=== PATIENT | male | born 1945 | race Caucasian/White ===

== ENCOUNTER 2020-01-22 05:19 | Inpatient (IN) | payer MEDICARE ==
[~2020-01-22] VITALS: Ht 175.3 cm; Wt 84.6 kg
[2020-01-22 05:19] VITALS: BP_SYST 158
--- NOTE | 2020-01-22 05:32 | NUR ---
Patient BIB by EMS from home. C/O Hiccups x today. Patient states " had Hiccups for 4 hours, started concern. " A/O,X4, no SOB, place patient hospital monitor.
--- NOTE | 2020-01-22 05:32 | NUR ---
Patient to ER bed 4 to gown for evaluation. Side rails up.
--- NOTE | 2020-01-22 06:24 | NUR ---
ER Dr. De La Cruz at bedside examining patient.
[2020-01-22] MEDS ORDERED: NACL 0.9% 1,000 ML IV ONE (06:45)
[2020-01-22] MEDS ORDERED: ONDANSETRON 4 MG ODT TAB PO ONE (06:45)
[2020-01-22] MEDS ORDERED: FAMOTIDINE 20 MG TABLET PO ONE (06:45)
--- NOTE | 2020-01-22 06:55 | NUR ---
# 20 gauge angiocath placed to left hand. Use of asceptic technique. Opsite placed over site. Blood return noted. Blood for lab drawn from site. Flushed with 10 cc of normal saline. No evidence of infiltration noted. Patient tolerated well.
[2020-01-22] MEDS ORDERED: THORAZINE (chlorproMAZINE) 25 MG TAB PO ONE (07:00)
[2020-01-22 07:14] LABS: BASOPHILS % (AUTO) 0.3 % (0.0-2.0); EOSINOPHILS # (AUTO) 0.3 K/uL (0.0-0.4); EOSINOPHILS % (AUTO) 2.6 % (0.0-4.0); HEMATOCRIT 38.2 % (36-54); HEMOGLOBIN 14.4 g/dL (14.0-18.0); LYMPHOCYTES # (AUTO) 0.7 K/uL (1.0-5.5); MEAN CORPUSCULAR HEMOGLOBIN 33 pg (27-31); MEAN CORPUSCULAR HGB CONC 38 % (32-36); MEAN CORPUSCULAR VOLUME 87 fL (79.0-98.0); MONOCYTES # (AUTO) 1.2 K/uL (0.0-1.0); MONOCYTES % (AUTO) 9.9 % (1.7-9.3); NEUTROPHILS # (AUTO) 9.5 K/uL (1.8-7.7); NEUTROPHILS % (AUTO) 81.2 % (40.0-70.0); PLATELET COUNT (AUTO) 360 K/uL (130-430); RED BLOOD CELL COUNT(AUTO) 4.42 MIL/uL (4.2-6.2); RED CELL DISTRIBUTION WIDTH 12.3 % (9.0-15.0); WHITE BLOOD COUNT (AUTO) 11.7 K/uL (4.8-10.8)
[2020-01-22 07:20] LABS: ANION GAP 9 (5-15); CALCIUM 8.5 mg/dL (8.4-11.0); CREATININE 0.92 mg/dL (0.55-1.30); GLUCOSE 118 mg/dL (70-99); POTASSIUM 3.9 mmol/L (3.5-5.1); UREA NITROGEN, BLOOD 12 mg/dL (8-21)
[2020-01-22] MEDS ORDERED: chlorproMAZINE HCL 50 MG/ 2 ML AMP ONE (07:30)
[2020-01-22 07:50] LABS: SODIUM SERUM 100 mmol/L (136-145)
[2020-01-22 07:51] LABS: CHLORIDE 70 mmol/L (98-107)
[2020-01-22] MEDS ORDERED: SODIUM CHLORIDE 3% *HI-ALERT* 500 ML IV ONE ×2 (08:00→22:15)
[2020-01-22 09:20] LABS: ANION GAP 7 (5-15); CREATININE 0.93 mg/dL (0.55-1.30); GLUCOSE 107 mg/dL (70-99); POTASSIUM 4.1 mmol/L (3.5-5.1); UREA NITROGEN, BLOOD 12 mg/dL (8-21)
[2020-01-22 09:27] LABS: CHLORIDE 72 mmol/L (98-107)
[2020-01-22 09:28] LABS: SODIUM SERUM 101 mmol/L (136-145)
--- NOTE | 2020-01-22 10:15 | NUR ---
PT GIVEN URINAL, AND PERICARE WITH LINEN CHANGE
[2020-01-22] MEDS ORDERED: ACETAMINOPHEN 325 MG TABLET PO PRN (11:00)
[2020-01-22] MEDS ORDERED: ONDANSETRON HCL 4 MG/2 ML VIAL IVP PRN (11:00)
--- NOTE | 2020-01-22 12:05 | NUR ---
Dr Capellan at bedside discussing admission with patient.
[2020-01-22] MEDS ORDERED: LISI-600 PO (12:17)
[2020-01-22] MEDS ORDERED: ALBMDI INH (12:17)
[2020-01-22] MEDS ORDERED: POTA10TA15 PO (12:17)
[2020-01-22] MEDS ORDERED: SILD20TA PO (12:17)
[2020-01-22] MEDS ORDERED: NOR10 PO (12:17)
[2020-01-22] MEDS ORDERED: PRED20TA PO (12:17)
--- NOTE | 2020-01-22 12:18 | NUR ---
Medication reconciliation completed with information provided by patient. Any prior medication reconciliation on file was reviewed and corrected.
--- NOTE | 2020-01-22 12:49 | NUR ---
PT TO RADIOLOGY.
--- NOTE | 2020-01-22 13:10 | NUR ---
PATIENT GIVEN HOSPITAL LUNCH TRAY
--- NOTE | 2020-01-22 14:25 | NUR ---
bed request to Tele/MS, unable to speak with [facility], notified house sup requesting bed assignment
[2020-01-22] MEDS: PANTOPRAZOLE SODIUM 40 MG TAB PO SCH (16:05)
--- NOTE | 2020-01-22 16:20 | NUR ---
PT GIVEN URINAL, AND PERICARE WITH LINEN CHANGE
[2020-01-22 17:10] LABS: BILIRUBIN,URINE NEGATIVE (NEGATIVE); BLOOD, URINE NEGATIVE (NEGATIVE); CLARITY/URINE CLEAR (CLEAR); COLOR,URINE YELLOW (YELLOW); GLUCOSE,URINE NEGATIVE (NEGATIVE); KETONES,URINE TRACE (NEGATIVE); LEUKOCYTE ESTERASE ,URINE NEGATIVE (NEGATIVE); NITRITE, URINE NEGATIVE (NEGATIVE); PROTEIN URINE NEGATIVE (NEGATIVE); UROBILINOGEN,URINE 0.2 (0.2-1.0)
--- NOTE | 2020-01-22 17:25 | NUR ---
PATIENT GIVEN HOSPITAL DINNER TRAY
[2020-01-22 18:00] LABS: ANION GAP 9 (5-15); CALCIUM 8.2 mg/dL (8.4-11.0); CREATININE 0.99 mg/dL (0.55-1.30); GLUCOSE 96 mg/dL (70-99); POTASSIUM 4.2 mmol/L (3.5-5.1); UREA NITROGEN, BLOOD 12 mg/dL (8-21)
[2020-01-22 18:08] LABS: SODIUM SERUM 103 mmol/L (136-145)
[2020-01-22 18:09] LABS: CHLORIDE 76 mmol/L (98-107)
--- NOTE | 2020-01-22 19:19 | NUR ---
REPORT TO OCTOBER RN
--- NOTE | 2020-01-22 19:53 | NUR ---
Patient resting quietly. No acute distress noted. Vital signs within normal range.
--- NOTE | 2020-01-22 20:03 | NUR ---
Patient will be admitted to care of Dr. Capellan. Admitted to Tele unit. Will go to room 112B. Belongings list completed. Complete and up to date summary report printed. SBAR report to be given at bedside with opportunity for questions.
[2020-01-22 20:18] VITALS: BP_SYST 131
--- NOTE | 2020-01-22 20:18 | NUR ---
ADMISSION NOTE Received patient from ER via gurney. Patient admitted with diagnosis of Severe Hyponatremia. Patient is awake, alert, oriented X 4. Patient oriented to hospital room, call light, toileting, pain management and safety-teach back done. Patient informed that PRANAV Agarwal will be primary nurse and that their room number is 112B. Personal belongings checked and Belongings List documented. Call light within reach.
--- NOTE | 2020-01-22 22:00 | NUR ---
INITIAL NOTE AT INITIAL ASSESSMENT, PATIENT IS RESTING IN BED, STABLE, NO SIGNS OF RESPIRATORY DISTRESS. PLAN OF CARE FOR THE EVENING IS COMMUNICATED WITH THE PATIENT. PATIENT DEMONSTRATES CORRECT USAGE OF CALL LIGHT USAGE AT THIS TIME. FALL, SAFETY, RESPIRATORY, AND ASPIRATION PRECAUTIONS WILL BE TAKEN THROUGHOUT THE SHIFT. BED IS LOCKED, ALARMED, AND AT THE LOWEST LEVEL.
[2020-01-22] MEDS ORDERED: hydrALAZINE HCL 10 MG TABLET PO PRN (23:00)
[2020-01-23] MEDS ORDERED: SODIUM CHLORIDE 3% *HI-ALERT* 500 ML IV ONE ×2 (01:11→01:12)
--- NOTE | 2020-01-23 06:00 | NUR ---
CLOSING NOTE PATIENT SLEPT WELL THROUGHOUT THE NIGHT. AT THIS TIME, HE IS STABLE, NO SIGNS OF RESPIRATORY DISTRESS. BED IS LOCKED, ALARMED, AND AT THE LOWEST LEVEL. FALL, SAFETY, RESPIRATORY, AND ASPIRATION PRECAUTIONS HAVE BEEN TAKEN THROUGHOUT THE SHIFT. WILL CONTINUE TO MONITOR UNTIL SBAR REPORT IS GIVEN AT BEDSIDE TO AM NURSE.
[2020-01-23 07:16] LABS: BASOPHILS # (AUTO) 0.1 K/uL (0.0-0.2); BASOPHILS % (AUTO) 0.7 % (0.0-2.0); EOSINOPHILS # (AUTO) 0.5 K/uL (0.0-0.4); EOSINOPHILS % (AUTO) 5.8 % (0.0-4.0); HEMATOCRIT 37.9 % (36-54); HEMOGLOBIN 13.8 g/dL (14.0-18.0); LYMPHOCYTES # (AUTO) 0.9 K/uL (1.0-5.5); LYMPHOCYTES % (AUTO) 10.4 % (20.5-51.5); MEAN CORPUSCULAR HEMOGLOBIN 32 pg (27-31); MEAN CORPUSCULAR HGB CONC 36 % (32-36); MEAN CORPUSCULAR VOLUME 89 fL (79.0-98.0); MONOCYTES # (AUTO) 1.2 K/uL (0.0-1.0); MONOCYTES % (AUTO) 13.1 % (1.7-9.3); NEUTROPHILS # (AUTO) 6.3 K/uL (1.8-7.7); PLATELET COUNT (AUTO) 347 K/uL (130-430); RED BLOOD CELL COUNT(AUTO) 4.27 MIL/uL (4.2-6.2); RED CELL DISTRIBUTION WIDTH 12.4 % (9.0-15.0)
[2020-01-23 08:00] VITALS: BP_SYST 131
--- NOTE | 2020-01-23 08:00 | NUR ---
A/Ox4,afebrile,vss,resting well in bed,no c/o pain or discomfort,hypertonic IVF infusing,needs attended,call light & personal items within pt reach,safety maintained.continue to monitor pt.
--- NOTE | 2020-01-23 08:03 | NUR ---
Nutrition Update Jono scale 18 noted. Pt admitted for Severe Hyponatremia Diet: 2 gm Na BMI: 27.5 kg/m2 RD to follow per nutrition care standards.
[2020-01-23 08:06] LABS: ALANINE AMINOTRANSFERASE 56 U/L (12-78); ANION GAP 4 (5-15); ASPARTATE AMINOTRANSFERASE 32 U/L (10-37); CALCIUM 7.9 mg/dL (8.4-11.0); CHLORIDE 87 mmol/L (98-107); CREATININE 1.02 mg/dL (0.55-1.30); GLUCOSE 95 mg/dL (70-99); POTASSIUM 3.7 mmol/L (3.5-5.1); THYROID STIMULATING HORMONE 1.93 uIu/mL (0.36-3.74); TOTAL BILIRUBIN 0.6 mg/dL (0.0-1.0); UREA NITROGEN, BLOOD 12 mg/dL (8-21)
[2020-01-23 08:32] LABS: SODIUM SERUM 117 mmol/L (136-145)
--- NOTE | 2020-01-23 09:00 | NUR ---
pt eating well for lunch,no n/v.hourly rounds made,safety maintained.
[2020-01-23] MEDS: PANTOPRAZOLE SODIUM 40 MG TAB PO SCH (09:04)
--- NOTE | 2020-01-23 11:00 | NUR ---
called and notified of sodium 117 per am lab,hold 3 % sodium IVF infusion then repeat BMP @1600 orders received and carried out,pt ambulated by self in the room,no acute distress noted.
--- NOTE | 2020-01-23 12:00 | NUR ---
VSS,NO C/O PAIN OR DISCOMFORT,HOURLY ROUNDS MADE,SAFETY MAINTAINED.
[2020-01-23 12:15] VITALS: BP_SYST 140
--- NOTE | 2020-01-23 14:00 | NUR ---
CAME AND SEEN PT FOR RENAL CONSULT.CONTINUE TO MONITOR PT.
--- NOTE | 2020-01-23 16:00 | NUR ---
AFEBRILE,VSS,REPEAT BMP DRAWN BY LAB,CONTINUE HOLD HYPERTONIC IV UNTIL FURTHER ORDER.
[2020-01-23 16:19] VITALS: BP_SYST 138
[2020-01-23 16:42] LABS: ANION GAP 9 (5-15); CALCIUM 8.4 mg/dL (8.4-11.0); CHLORIDE 91 mmol/L (98-107); CREATININE 1.06 mg/dL (0.55-1.30); GLUCOSE 102 mg/dL (70-99); POTASSIUM 3.6 mmol/L (3.5-5.1); SODIUM SERUM 120 mmol/L (136-145); UREA NITROGEN, BLOOD 12 mg/dL (8-21)
--- NOTE | 2020-01-23 18:05 | NUR ---
REPEAT NA UP TO 120, CALLED AND NOTIFIED,NO FURTHER ORDERS OBTAINED.PT EATING WELL FOR DINNER.NO EVENT THROUGHOUT AM SHIFT.
--- NOTE | 2020-01-23 19:40 | NUR ---
ROUNDS PATIENT RESTING COMFORTABLY IN BED, NOT IN DISTRESS, VITALS STABLE. ASSESSMENT DONE AND DOCUMENTED. SEE FLOWSHEET. NEEDS ATTENDED TO. SAFETY AND FALL MEASURES IN PLACED. BED IN LOW AND LOCKED POSITION. CALL LIGHT PLACED WITHIN REACH.
[2020-01-23 20:00] VITALS: BP_SYST 122
--- NOTE | 2020-01-23 22:15 | NUR ---
PATIENT RESTING: Patient resting quietly. No acute distress noted. Vital signs within normal range.
[2020-01-24] VITALS: BP_SYST 129
--- NOTE | 2020-01-24 00:15 | NUR ---
ROUNDS PATIENT ASLEEP, RESPIRATIONS EVEN AND UNLABORED, VITALS STABLE. WILL CONTINUE TO MONITOR.
--- NOTE | 2020-01-24 04:12 | NUR ---
PATIENT RESTING: Patient resting quietly. No acute distress noted. Vital signs within normal range.
--- NOTE | 2020-01-24 06:55 | NUR ---
CLOSING NOTES PATIENT AWAKE, VITALS STABLE, NO COMPLAINTS AT THIS TIME. ALL NEEDS ATTENDED TO. SAFETY MEASURES MAINTAINED. CALL LIGHT PLACED WITHIN REACH.
[2020-01-24 08:00] VITALS: BP_SYST 135
--- NOTE | 2020-01-24 08:00 | NUR ---
A/Ox4,vss,resting well in bed,no c/o pain or discomfort,saline lock in left hand patent and intact needs attended,call light & personal items within pt reach,safety maintained.continue to monitor pt.
[2020-01-24] MEDS: PANTOPRAZOLE SODIUM 40 MG TAB PO SCH (08:33)
[2020-01-24 08:54] LABS: BASOPHILS # (AUTO) 0.1 K/uL (0.0-0.2); BASOPHILS % (AUTO) 0.8 % (0.0-2.0); EOSINOPHILS # (AUTO) 0.5 K/uL (0.0-0.4); HEMATOCRIT 38.4 % (36-54); HEMOGLOBIN 13.6 g/dL (14.0-18.0); LYMPHOCYTES # (AUTO) 0.8 K/uL (1.0-5.5); LYMPHOCYTES % (AUTO) 10.7 % (20.5-51.5); MEAN CORPUSCULAR HEMOGLOBIN 32 pg (27-31); MEAN CORPUSCULAR HGB CONC 35 % (32-36); MEAN CORPUSCULAR VOLUME 91 fL (79.0-98.0); MONOCYTES # (AUTO) 0.6 K/uL (0.0-1.0); MONOCYTES % (AUTO) 7.8 % (1.7-9.3); NEUTROPHILS # (AUTO) 5.7 K/uL (1.8-7.7); NEUTROPHILS % (AUTO) 73.7 % (40.0-70.0); PLATELET COUNT (AUTO) 347 K/uL (130-430); RED BLOOD CELL COUNT(AUTO) 4.23 MIL/uL (4.2-6.2); RED CELL DISTRIBUTION WIDTH 12.4 % (9.0-15.0); WHITE BLOOD COUNT (AUTO) 7.8 K/uL (4.8-10.8)
[2020-01-24 09:12] LABS: ALANINE AMINOTRANSFERASE 64 U/L (12-78); ANION GAP 8 (5-15); ASPARTATE AMINOTRANSFERASE 30 U/L (10-37); CALCIUM 8.4 mg/dL (8.4-11.0); CHLORIDE 94 mmol/L (98-107); CREATININE 1.07 mg/dL (0.55-1.30); GLUCOSE 176 mg/dL (70-99); POTASSIUM 3.4 mmol/L (3.5-5.1); SODIUM SERUM 124 mmol/L (136-145); TOTAL BILIRUBIN 0.6 mg/dL (0.0-1.0); UREA NITROGEN, BLOOD 12 mg/dL (8-21)
--- NOTE | 2020-01-24 10:00 | NUR ---
called and notified of abnormal am lab sodium 124,K level 3.4,order received and carried out, give KCL 40 meq po once per dr order.
--- NOTE | 2020-01-24 10:08 | NUR ---
PAGED PAGED LOREE LEON AT [phone] SPOKE WITH JOHN
[2020-01-24] MEDS ORDERED: POTASSIUM CHLORIDE 20 MEQ TAB.PRT.SR PO ONE (11:15)
--- NOTE | 2020-01-24 14:00 | NUR ---
assisted pt personal hygiene in bathroom,pt has drink 1 pitchter full of water and asking for more water yet no MD order for fluid restriction.continue to monitor pt.
--- NOTE | 2020-01-24 15:22 | NUR ---
Case mgt: Faxed prog notes to [facility] case mgt-Dr. Capellan note 01/23/20, Dr. Cronin 01/24/20 note-[facility] fax#[phone]-- RN
--- NOTE | 2020-01-24 18:14 | NUR ---
condition stable.hourly rounds made,safety maintained,no significant event throughout am shift will endorse report to oncoming shift staff.
--- NOTE | 2020-01-24 19:40 | NUR ---
ROUNDS PATIENT RESTING COMFORTABLY IN BED, VITALS STABLE, DENIES ANY PAIN AND DISCOMFORT AT THIS TIME. ASSESSMENT DONE AND DOCUMENTED. SEE FLOWSHEET. NEEDS ATTENDED TO. SAFETY AND FALL MEASURES IN PLACED. CALL LIGHT PLACED WITHIN REACH.
[2020-01-24 20:00] VITALS: BP_SYST 126
[2020-01-24] MEDS: OXYMETAZOLINE HCL 0.05% NASAL SPRAY NS SCH (21:00)
[2020-01-24] MEDS ORDERED: KCL 20 mEq in NS 1000 mL 1,000 ML IV ONE (21:01)
[2020-01-24] MEDS: KCL 20 mEq in NS 1000 mL 1,000 ML IV SCH (22:11)
--- NOTE | 2020-01-24 22:18 | NUR ---
PATIENT RESTING: Patient resting quietly. No acute distress noted. Vital signs within normal range.
[2020-01-25] VITALS: BP_SYST 115
--- NOTE | 2020-01-25 00:16 | NUR ---
ROUNDS PATIENT ASLEEP, VITAL STABLE, NO SIGNS OF ANY PAIN AND DISCOMFORT NOTED. WILL CONTINUE TO MONITOR.
--- NOTE | 2020-01-25 02:20 | NUR ---
ROUNDS PATIENT SLEEPING, RESPIRATIONS EVEN AND UNLABORED, NO SIGNS OF ANY PAIN AND DISCOMFORT NOTED. WILL CONTINUE TO MONITOR.
--- NOTE | 2020-01-25 04:16 | NUR ---
PATIENT RESTING: Patient resting quietly. No acute distress noted. Vital signs within normal range.
--- NOTE | 2020-01-25 06:50 | NUR ---
CLOSING NOTES PATIENT AWAKE, NO COMPLAINTS AT THIS TIME, VITALS STABLE. ALL NEEDS ATTENDED TO. SAFETY MEASURES MAINTAINED. CALL LIGHT PLACED WITHIN REACH.
[2020-01-25 08:00] VITALS: BP_SYST 140
--- NOTE | 2020-01-25 08:00 | NUR ---
A/Ox4,vss,IVF continue infusing,IV site in left hand patent and clear.no c/o pain or discomfort needs attended,call light & personal items within pt reach,safety maintained.continue to monitor pt.
[2020-01-25] MEDS: PANTOPRAZOLE SODIUM 40 MG TAB PO SCH (09:47)
[2020-01-25 09:58] LABS: ANION GAP 6 (5-15); CALCIUM 8.7 mg/dL (8.4-11.0); CHLORIDE 94 mmol/L (98-107); CREATININE 1.05 mg/dL (0.55-1.30); GLUCOSE 155 mg/dL (70-99); SODIUM SERUM 125 mmol/L (136-145); UREA NITROGEN, BLOOD 9 mg/dL (8-21)
--- NOTE | 2020-01-25 10:00 | NUR ---
came and seen pt.order received and carried out.
--- NOTE | 2020-01-25 12:00 | NUR ---
afebrile,vss,pt ambulatory in the room,no distress noted.hourly rounds made,safety maintained.
[2020-01-25 12:36] VITALS: BP_SYST 150
[2020-01-25] MEDS ORDERED: INSULIN LISPRO SLIDING SCALE 100 UNITS/ML VIAL (humaLOG) SUBCUT PRN (14:00)
[2020-01-25] MEDS ORDERED: BISACODYL 10 MG/SUPPOSITORY RC PRN (14:00)
--- NOTE | 2020-01-25 14:00 | NUR ---
pt resting quietly in bed.no c/o pain or discomfort.continue to monitor pt.
[2020-01-25] MEDS ORDERED: DOCUSATE SODIUM 250 MG CAPSULE PO ONE (14:15)
[2020-01-25 16:25] VITALS: BP_SYST 158
--- NOTE | 2020-01-25 19:35 | NUR ---
ROUNDS PATIENT RESTING COMFORTABLY IN BED, VITALS STABLE, DENIES ANY PAIN AND DISCOMFORT ATT HIS TIME. ASSESSMENT DONE AND DOCUEMNTED. SEE FLOWSHEET. NEEDS ATTENDED TO. SAFETY AND FALL MEASURES IN PLACED. BED IN LOW AND LOCKED POSITION. CALL LIGHT PLACED WITHIN REACH.
[2020-01-25 20:00] VITALS: BP_SYST 147
[2020-01-25] MEDS: OXYMETAZOLINE HCL 0.05% NASAL SPRAY NS SCH (20:35)
[2020-01-25] MEDS: DOCUSATE SODIUM 250 MG CAPSULE PO SCH (20:35)
[2020-01-25] MEDS: KCL 20 mEq in NS 1000 mL 1,000 ML IV SCH (20:35)
--- NOTE | 2020-01-25 21:14 | NUR ---
ACCU CHECK ACCU CHECK DONE, BLOOD SUGAR 121 WITH NO INSULIN COVERAGE PER SLIDING SCALE. WILL CONTINUE TO MONITOR.
[2020-01-26] VITALS: BP_SYST 152
--- NOTE | 2020-01-26 00:12 | NUR ---
PATIENT RESTING: Patient resting quietly. No acute distress noted. Vital signs within normal range.
--- NOTE | 2020-01-26 02:15 | NUR ---
ROUNDS PATIENT ASLEEP, RESPIRATIONS EVEN AND UNLABORED, WILL CONTINUE TO MONITOR.
--- NOTE | 2020-01-26 04:12 | NUR ---
PATIENT RESTING: Patient resting quietly. No acute distress noted. Vital signs within normal range.
--- NOTE | 2020-01-26 06:33 | NUR ---
CLOSING NOTES PATIENT AWAKE, VITALS STABLE, NO COMPLAINTS AT THIS TIME. ALL NEEDS ATTENDED TO. SAFETY MEASURES MAINTAINED. CALL LIGHT PLACED WITHIN REACH.
--- NOTE | 2020-01-26 07:50 | NUR ---
report received from [facility] shift nurse. Pt is currently AAOx4 and having breakfast in bed. IV is on the left hand 20g, patent and infusing well. Call light is within reach. will continue to monitor.
[2020-01-26 08:23] VITALS: BP_SYST 157
[2020-01-26 08:34] LABS: ANION GAP 7 (5-15); CALCIUM 8.5 mg/dL (8.4-11.0); CHLORIDE 99 mmol/L (98-107); GLUCOSE 98 mg/dL (70-99); POTASSIUM 4.3 mmol/L (3.5-5.1); SODIUM SERUM 130 mmol/L (136-145); UREA NITROGEN, BLOOD 9 mg/dL (8-21)
--- NOTE | 2020-01-26 10:20 | NUR ---
pt is currently resting in bed. Call light is within
[2020-01-26] MEDS: DOCUSATE SODIUM 250 MG CAPSULE PO SCH (11:03)
[2020-01-26] MEDS: PANTOPRAZOLE SODIUM 40 MG TAB PO SCH (11:03)
--- NOTE | 2020-01-26 11:15 | NUR ---
20g inserted the RAC. Patient tolerated well.
[2020-01-26 12:39] VITALS: BP_SYST 153
--- NOTE | 2020-01-26 14:00 | NUR ---
Dr. Capellan is at the bedside speaking w/ the pt.
[2020-01-26 14:36] VITALS: BP_SYST 153
--- NOTE | 2020-01-26 15:02 | NUR ---
D/C Patient Patient given medication reconciliation form and D/C instructions. Exit Care provided. Patient verbalized understanding. MD discussed with patient the results and treatment provided. Ambulatory with steady gait for discharge to home. Patient in stable condition, ID band removed. IV catheter removed, intact and dressing applied, no active bleeding. Rx of given. Patient educated on pain management. All belongings sent with patient.
--- NOTE | 2020-01-28 12:00 | NUR ---
DISCHARGE FOLLOW UP CALL: MICROBIOLOGY TEACHER phoned pt @ [phone] (non-working). MICROBIOLOGY TEACHER phoned spouse and was given pt's phone number ([phone]). MICROBIOLOGY TEACHER spoke with patient who stated he is feeling "good" and "best today after 3 months". Pt stated he has a telehealth appointment with his PCP today 01/27 and also understood to stop his lisinopril until he talks to his PCP. Spouse also needed the phone number for medical records to give to his PCP in case they request for his records. Pt stated he was very happy staying here and everyone took really good care of him. No further SS call needed.
== END 2020-01-26 15:15 | disposition home or self-care (01) | DRG 640 ==
LOC: SED 05:19 → STU 09:35
PROVIDERS: ADMIT Internal Medicine; ATTEND Internal Medicine
DX: E87.1 Hypo-osmolality and hyponatremia (principal); G93.41 Metabolic encephalopathy; E44.1 Mild protein-calorie malnutrition; I10 Essential (primary) hypertension; R06.6 Hiccough; R10.13 Epigastric pain; T50.2X5A Adverse effect of carbonic-anhydrase inhibitors, benzothiadiazides and other diuretics, initial encounter; Y92.89 Other specified places as the place of occurrence of the external cause
CPT/HCPCS: 36415; 70450-TC; 71045; 76700-TC; 80048; 80053; 81003; 82435-TC; 82533; 82962; 83735-TC; 83880; 83935-TC; 84302-TC; 84443-TC; 85025; 87086; 93005; 96360; 96361; 99291; G0378; J3230; J3480; J3490; Q0161; Q0162